=== PATIENT | male | born 1975 | race Caucasian/White ===

== ENCOUNTER 2018-01-16 07:00 | Outpatient (RCR) | payer OTHER, SELFPAY | END 2018-02-06 13:00 | disposition home or self-care (01) | LOC: OT 07:00 | PROVIDERS: Visit Provider Orthopaedic Surgery | DX: M65.332 Trigger finger, left middle finger (principal) | CPT/HCPCS: 97110; 97140; 97163; 97165 ==

== ENCOUNTER → 2018-03-31 14:39 | Outpatient (CLI) | payer OTHER, SELFPAY ==
--- NOTE | 2018-03-31 14:43 | CT_ITS ---
CT sinus wo/w con Ordering Physician: Alvaro Jones MD Patient Age: 43 years: Male HISTORY: ITS.REASON: sinus congestion . Headache . TECHNIQUE: Helical CT scanning performed sinuses pre and postcontrast.. Axial sagittal and coronal reconstructions performed on CT workstation. 100 cc [id number]-[id number] used for the postcontrast study All CT scans at this facility used one or more dose reduction techniques , viz: automatic exposure control, ma/Kv adjustment per patient's size, (including targeted exam where dose matched to the indication; i.e. head); or iterative reconstruction technique COMPARISON :No previous FINDINGS Maxillary sinuses. Prominent bilateral air-fluid levels at both left and right maxillary sinus-suggesting active, acute sinusitis. Air-fluid level and bubbly material slightly more pronounced at the left maxillary sinus. Mild/moderate diffuse mucosal thickening maxillary sinuses.. The ostiomeatal complex outflow pathway is obscured and occluded by the mucosal thickening. This is more pronounced than the left than right. In fact the left at question may be some widening of the left ostium and infundibulum of the left [facility]. Ethmoid air cells. Prominent mucosal thickening bilaterally, throughout ethmoid air cells. Frontal sinuses. Mucosal thickening extends from the ethmoid air cells into the inferior frontal sinuses most pronounced mucosal thickening seen at the inferior frontal sinus. Minimal mucosal thickening otherwise more superiorly in frontal sinuses. . sphenoid sinuses:. Only minor mucosal thickening anteriorly. Deviation nasal septum to the right with additional 4 mm septal spur extending towards the right right. These features additionally narrow and exclude the right nasal airway. Mild to moderate Engorgement nasal turbinates bilaterally. Postcontrast images show no discrete abnormal enhancing lesions. The base the skull and and inferior brain survey unremarkable on this postcontrast images well. The orbits unremarkable. The medial wall and floor of orbit intact. Mastoid air cells, middle air and IACs unremarkable Bilateral small lucencies at the inner table of the skull at posterior fossa noted and are most likely incidental benign arachnoid granulations/. IMPRESSION...... 1.. Acute sinusitis. ... Generous Air-fluid levels & moderate mucosal thickening at Maxillary Sinuses bilaterally .-Reflecting active/acute sinusitis.. The mucosal thickening fluid & inflammatory features also occlude ostiomeatal complex bilaterally. ... Ethmoid air cells with prominent diffuse mucosal thickening. ... Moderate mucosal thickening frontal sinuses.. 2. No abnormal enhancement. No enhancing mass is seen associated with the paranasal sinus disease 3. Deviation nasal septum convex to the right, with septal spur to the right. This along with engorgement nasal turbinates narrows the right nasal airway
== END ==
PROVIDERS: PCP Nurse Practitioner Family; Visit Provider Otolaryngology
DX: J32.0 Chronic maxillary sinusitis (principal); J34.2 Deviated nasal septum
CPT/HCPCS: 70488; Q9967

== ENCOUNTER → 2018-07-17 16:47 | Outpatient (CLI) | payer OTHER, SELFPAY ==
[2018-07-17 17:28] LABS: Basophils % 0.3 % (0.1-2.0); Eosinophils # 0.9 K/mm3 (0.0-0.4); Eosinophils % 7.1 % (0.1-12.0); Hematocrit 50.7 % (42.0-52.0); Hemoglobin 16.6 g/dL (14.1-18.0); Lymphocytes % 32.4 K/mm3 (10-50); Mean Corpuscular HGB Conc 32.6 g/dL (31.8-35.4); Mean Corpuscular Hemoglobin 29.3 pg (27.0-31.2); Mean Corpuscular Volume 89.7 fl (80-94); Mean Platelet Volume 8.2 fl (7.4-10.4); Monocytes # 0.9 K/mm3 (0.1-1.0); Monocytes % 7.4 % (1.7-9.3); Neutrophils # 6.5 K/mm3 (1.8-7.8); Neutrophils % 52.9 % (37.0-80.0); Platelet Count 217 K/mm3 (142-424); Red Blood Count 5.65 M/mm3 (4.60-6.20); Red Cell Distribution Width 12.9 % (11.5-17.5); White Blood Count 12.2 K/mm3 (4.8-10.8)
[2018-07-17 19:54] LABS: Alanine Aminotransferase 28 U/L (12-78); Albumin Level 3.6 gm/dL (3.4-5.0); Albumin/Globulin Ratio 1.1 (1.1-1.8); Alkaline Phosphatase 96 U/L (46-116); Anion Gap 9.1 mEq/L (5-15); Aspartate Amino Transferase 16 U/L (15-37); Bilirubin,Total 0.3 mg/dL (0.2-1.0); Blood Urea Nitrogen 12 mg/dL (7-18); Calcium 9.1 mg/dL (8.5-10.1); Carbon Dioxide 33 mmol/L (21.0-32.0); Chloride 106 mmol/L (98-107); Creatinine,Serum 0.92 mg/dL (0.70-1.30); Estimated Glomerular Filt Rate 90 ml/min (>60); GFR (African American) 109 ML/MIN (>60); Globulin 3.2 gm/dl (1.3-3.2); Glucose 98 mg/dL (74-106); Potassium 4.1 mmoL/L (3.5-5.1); Sodium 144 mmol/L (136-145); Total Protein,Serum 6.8 gm/dL (6.4-8.2)
== END ==
PROVIDERS: PCP Nurse Practitioner Family; Visit Provider Otolaryngology
DX: J01.90 Acute sinusitis, unspecified (principal); J34.2 Deviated nasal septum; Z01.818 Encounter for other preprocedural examination; J32.0 Chronic maxillary sinusitis
CPT/HCPCS: 36415; 80053; 85025; 93005